=== PATIENT | male | born 1985 | race American Indian/Alaskan Native ===

== ENCOUNTER 2016-12-03 08:42 | Emergency (ER) | payer OTHER ==
[2016-12-03 08:50] VITALS: BP 144/94; PULSE 68; TEMP 97.7; BMI 32.3
--- NOTE | 2016-12-03 09:21 | PDOC ---
History of Present Illness - General Chief Complaint: Pain Stated Complaint: NECK PAIN, LT SHOULDER PAIN Time Seen by Provider: 12/03/16 09:11 History Source: Patient Exam Limitations: No Limitations - History of Present Illness Initial Comments: 12/03/16 09:18 Complaints of neck and left shoulder pain 2 days. Uncertain as to cause, states woke up and had severe pain in his progressively gotten worse. Has tried to change pillow, has used some Motrin with minimal resolved. 12/03/16 09:19 12/03/16 09:33 Occurred: reports: yesterday Severity: reports: mild, moderate Pain Location: reports: neck, upper extremity Method of Injury: Yes: unknown Modifying Factors: improves with: None Loss of Consciousness: no loss of consciousness Associated Symptoms (Fall): denies symptoms Past History - Travel Traveled outside of the country in the last 30 days: No Close contact w/someone who was outside of country & ill: No - Past Medical History Allergies/Adverse Reactions: Allergies Allergy/AdvReac Type Severity Reaction Status Date / Time No Known Allergies Allergy Verified 12/03/16 08:46 Home Medications: Ambulatory Orders Cyclobenzaprine HCl [Flexeril 10 mg] 10 mg PO BID PRN #14 tablet 12/03/16 - Psycho/Social/Smoking Cessation Hx Anxiety: No Suicidal Ideation: No Smoking History: Never smoked Have you smoked in the past 12 months: No Information on smoking cessation initiated: No Hx Alcohol Use: No Drug/Substance Use Hx: No Substance Use Type: None Trauma Specific PMHX - Complaint Specific PMHX Arthritis: No Back Injury: No Neck Injury: No Review of Systems - Review of Systems Able to Perform ROS?: Yes Is the patient limited Malawian proficient: Yes Constitutional: Yes: Symptoms Reported, See HPI, Malaise. No: Chills, Fever HEENTM: Yes: See HPI. No: Symptoms Reported, Nose Congestion, Throat Pain Respiratory: Yes: See HPI, Cough. No: Symptoms reported Musculoskeletal: Yes: Symptoms Reported, See HPI, Back Pain, Muscle Pain, Neck Pain Integumentary: Yes: See HPI. No: Symptoms Reported Neurological: Yes: Symptoms reported, See HPI, Headache All Other Systems: Reviewed and Negative *Physical Exam - Vital Signs Last Vital Signs Temp Pulse Resp BP Pulse Ox 97.7 F 68 18 144/94 99 12/03/16 08:48 12/03/16 08:48 12/03/16 08:48 12/03/16 08:48 12/03/16 08:48 - Physical Exam General Appearance: Yes: Nourished, Appropriately Dressed, Apparent Distress, Mild Distress HEENT: positive: CHEPE, Normal ENT Inspection, TMs Normal, Pharynx Normal Neck: positive: Tender, Supple, Other (palpable spasm noted to the left upper trapezius, with deep palpation reproduces tenderness to shoulder. No cervical spine tenderness, no right shoulder tenderness.) Respiratory/Chest: positive: Lungs Clear, Normal Breath Sounds, Respiratory Distress. negative: Wheezing Gastrointestinal/Abdominal: positive: Normal Bowel Sounds, Tender, Soft. negative: Guarding Extremity: positive: Normal Capillary Refill, Normal Inspection Integumentary: positive: Normal Color, Dry, Warm Neurologic: positive: wall attendant II-XII NML intact, Fully Oriented, Alert, Normal Mood/ Affect, Normal Response, Motor Strength 5/5 Progress Note - Progress Note Progress Note: Cervical strain, will treat with NSAIDs and cyclobenzaprine *DC/Admit/Observation/Transfer Diagnosis at time of Disposition: Cervical muscle strain Qualifiers: Encounter type: initial encounter Qualified Code(s): S16.1XXA - Strain of muscle, fascia and tendon at neck level, initial encounter - Discharge Dispostion Disposition: HOME Condition at time of disposition: Stable Admit: No - Patient Instructions Printed Discharge Instructions: DI for Cervical Muscle Strain Additional Instructions: Rest, no heavy lifting or exercise until pain is resolved Hot soaks to neck and low back as often as possible/hot showers or Jacuzzis No massage or therapy until spasm is gone Continue ibuprofen 2-200 mg tablets every 6 hours for the next 3 days then as needed for pain and swelling Cyclobenzaprine 1-10mg every 8 hours as needed for spasm If not significant improvement within 24 hours with medication and rest regime, followup with private physician for change in medications and /or therapy. - Post Discharge Activity Work/School Note: Back to Work
[2016-12-03] MEDS ORDERED: KETOROLAC TROMETHAMINE 60 MG/2 ML VIAL IM ONE (09:29)
[2016-12-03] MEDS ORDERED: CYCLOBENZAPRINE HCL 10 MG TABLET (FP) ONE (09:29)
[2016-12-03] MEDS ORDERED: CYCLOBENZAPRINE HCL 10 MG TABLET (FP) PO ONE (09:29)
[2016-12-03] MEDS ORDERED: KETOROLAC TROMETHAMINE 60 MG/2 ML VIAL ONE (09:29)
== END 2016-12-03 10:13 | disposition home or self-care (01) ==
LOC: JERFT 08:42
PROC: 3E0233Z Introduction of Anti-inflammatory into Muscle, Percutaneous Approach (ICD-10-PCS; principal; 2016-12-03)
DX: S16.1XXA Strain of muscle, fascia and tendon at neck level, initial encounter (principal); X58.XXXA Exposure to other specified factors, initial encounter; Y93.89 Activity, other specified; Y92.013 Bedroom of single-family (private) house as the place of occurrence of the external cause
CPT/HCPCS: 99281-25

== ENCOUNTER 2017-05-02 15:09 | Emergency (ER) | payer OTHER ==
[2017-05-02] MEDS ORDERED: DEXAMETHASONE SOD PHOSPHATE 10 MG/1 ML VIAL ONE (15:13)
[2017-05-02] MEDS ORDERED: methylPREDNISolone NA SUCC 125 MG/2 ML VIAL ONE (15:14)
[2017-05-02] MEDS ORDERED: FAMOTIDINE 20 MG/50 ML IVPB 50 ML IVPB ONE ×2 (15:14→18:37)
[2017-05-02] MEDS ORDERED: EPINEPHrine/PF 1 MG/1 ML (1:1,000) AMPULE ONE (15:20)
--- NOTE | 2017-05-02 15:42 | PDOC ---
Attending Attestation - Resident Resident Name: AbrahanaltonWes - ED Attending Attestation I have performed the following: I have examined & evaluated the patient, The case was reviewed & discussed with the resident, I agree w/resident's findings & plan - HPI HPI: 05/02/17 16:43 The patient is a 32 year old male, with a significant past medical history of anaphylaxis BIBEMS for an allergic reaction s/p epinephrine in the field. 1 hour DAIRY TESTER, pt reports eating some bread, then began complaining of a rash and shortness of breath. The patient reports he ate some bread, and shortly after began to notice his skin turn red, itchy, and with hives. After several minutes patient reports noting chest pain, which he describes as a pressure. Patient reports his symptoms are similar to allergic reactions he has had in the past, and states he took two 25mg benadryl as a result. Patient reports symptoms worsened after taking benadryl and he became extremely short of breath. At that time EMS was activated. When EMS arrived on scene, patient was given epinephrine due to systolic BP in the 50s. He reports significant improvement in his SOB after the epinephrine. Patient currently denies any associated throat or tongue swelling. He still has hives, but otherwise is asymptomatic. He denies any diaphoresis or palpitations. He denies any fever, chills, or cough. Denies N/V/D. Allergies: NKDA Past Surgical History: None reported Social History: Non smoker. No ETOH or drug use. PCP: Dr. Mark GENERAL/CONSTITUTIONAL: No fever or chills. No weakness. HEAD, EYES, EARS, NOSE AND THROAT: No change in vision. No ear pain or discharge. No sore throat. CARDIOVASCULAR:Yes: +chest pain, +shortness of breath. RESPIRATORY: No cough, wheezing, or hemoptysis. GASTROINTESTINAL: No nausea, vomiting, diarrhea or constipation. GENITOURINARY: No dysuria, frequency, or change in urination. MUSCULOSKELETAL: No joint or muscle swelling or pain. No neck or back pain. SKIN: No rash NEUROLOGIC: No headache, vertigo, loss of consciousness, or change in strength/ sensation. ENDOCRINE: No increased thirst. No abnormal weight change. HEMATOLOGIC/LYMPHATIC: No anemia, easy bleeding, or history of blood clots. ALLERGIC/IMMUNOLOGIC: Yes: +skin allergy, +erythematous skin, +hives. - Physicial Exam PE: 05/02/17 16:43 GENERAL: Awake, alert, and fully oriented, in no acute distress HEAD: No signs of trauma EYES: PERRLA, EOMI, sclera anicteric, conjunctiva clear ENT: No edema of the lips or tongue, oropharynx is clear, mallampati 2, uvula was midline. NECK: Normal ROM, supple, no lymphadenopathy, JVD, or masses LUNGS: Breath sounds equal, clear to auscultation bilaterally. No wheezes, and no crackles HEART: Regular rate and rhythm, normal S1 and S2, no murmurs, rubs or gallops ABDOMEN: Soft, nontender, normoactive bowel sounds. No guarding, no rebound. No masses EXTREMITIES: Normal range of motion, no edema. No clubbing or cyanosis. No cords, erythema, or tenderness NEUROLOGICAL: Normal speech, cranial nerves intact, negative pronator drift, 5/ 5 strength in all 4 extremities, normal sensation to light touch in all 4 extremities, normal cerebellar exam, normal gait, normal reflexes and tone SKIN: Diffuse erythema, with some superimposed hives on the proximal left upper extremity. - Medical Decision Making 05/02/17 16:43 Documentation prepared by Curtis Douglas, acting as certified medical coder for Clotilde Carrera MD. <Curtis Douglas - Last Filed: 05/02/17 16:44> - Resident Resident Name: Wes English - ED Attending Attestation I have performed the following: I have examined & evaluated the patient, The case was reviewed & discussed with the resident, I agree w/resident's findings & plan, Exceptions are as noted - HPI HPI: 05/02/17 19:01 32yo M hx anaphylaxis p/w - Medical Decision Making 05/02/17 17:03 32-year-old male history of anaphylaxis presents with anaphylaxis. Currently patient is hemodynamically stable and on exam only has persistent diffuse erythema to his skin and hives on the proximal left upper extremity. His airway is currently patent and he denies any breathing complaints. He also has no wheezing on exam. We will observe the patient for approximately 6 hours. 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 Will observe for a total of 6 hours and discharge home with a prescription for 2 EpiPens, Pepcid, Benadryl, prednisone if he does not have further symptoms. 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 <Clotilde Carrera - Last Filed: 05/03/17 09:53>
[2017-05-02 15:45] VITALS: BMI 30.1
--- NOTE | 2017-05-02 16:41 | PDOC ---
History of Present Illness - General Chief Complaint: Allergic Reaction Stated Complaint: ALLERGIC REACTION Time Seen by Provider: 05/02/17 15:24 History Source: Patient Exam Limitations: No Limitations - History of Present Illness Initial Comments: 05/02/17 16:35 Patient is a 32M with history of one prior anaphylaxis episode due to an unknown cause here today via EMS with anaphylaxis. Per EMS, patient collapsed and had low blood pressure reading with a diffuse rash and difficulty breathing. Was given epi in the field. On arrival to the ED, patient was improved, awake and alert. He reports eating bread, and still does not know what caused the reaction. Past History - Past Medical History Allergies/Adverse Reactions: Allergies Allergy/AdvReac Type Severity Reaction Status Date / Time No Known Allergies Allergy Verified 12/03/16 08:46 Home Medications: Ambulatory Orders Epinephrine [Epipen 2-Loki] 0.3 mg IJ ASDIR #1 kit 05/02/17 Famotidine [Pepcid] 20 mg PO DAILY #5 tablet 05/02/17 Prednisone [Prednisone 50 MG TABLETS] 50 mg PO DAILY #4 tablet 05/02/17 Other medical history: denies - Psycho/Social/Smoking Cessation Hx Anxiety: No Suicidal Ideation: No Smoking History: Never smoked Have you smoked in the past 12 months: No Information on smoking cessation initiated: No Hx Alcohol Use: No Drug/Substance Use Hx: No Substance Use Type: None Review of Systems - Review of Systems Comments:: 05/02/17 16:41 GENERAL/CONSTITUTIONAL: No fever or chills. No weakness. HEAD, EYES, EARS, NOSE AND THROAT: No change in vision. No ear pain or discharge. No sore throat. CARDIOVASCULAR: No chest pain or shortness of breath RESPIRATORY: No cough, Positive for: wheezing SKIN: Positive for rash NEUROLOGIC: No headache, Positive for: loss of consciousness ENDOCRINE: No increased thirst. No abnormal weight change HEMATOLOGIC/LYMPHATIC: No anemia, easy bleeding, or history of blood clots. ALLERGIC/IMMUNOLOGIC: Positive for prior anaphylaxis reaction *Physical Exam - Vital Signs Last Vital Signs Temp Pulse Resp BP Pulse Ox 72 18 111/77 100 05/02/17 15:10 05/02/17 15:10 05/02/17 15:10 05/02/17 15:10 - Physical Exam Comments: 05/02/17 16:43 GENERAL: Awake, alert, and fully oriented, in moderate acute distress HEAD: No signs of trauma, normocephalic, atraumatic, facial edema EYES: PERRLA, EOMI, sclera anicteric, conjunctiva clear ENT: Auricles normal inspection, hearing grossly normal, nares patent, oropharynx clear without exudates. Moist mucosa NECK: Normal ROM, supple, no lymphadenopathy, JVD, or masses LUNGS: No wheezing, moderate distress, clear to auscultation HEART: Regular rate and rhythm, normal S1 and S2, no murmurs, rubs or gallops, peripheral pulses normal and equal bilaterally. ABDOMEN: Soft, nontender, normoactive bowel sounds. No guarding, no rebound. No masses EXTREMITIES: Normal inspection, No edema NEUROLOGICAL: Cranial nerves II through XII grossly intact. No focal sensorimotor deficits SKIN: Diffuse maculopapular rash Medical Decision Making - Medical Decision Making 05/02/17 16:45 32M with history of prior anaphylaxis presenting with anaphylaxis via EMS. Improved after field epi given. Given solumedrol and benadryl immediately in hospital. Patient protecting their airway, breathing normally, normal cardiovascular function, responds to commands and moves all four extremities. Patient quickly resolved back to baseline. Currently vital signs stable and normal. Will continue to monitor. 05/02/17 18:25 Patient continues to be stable. Rash resolving. *DC/Admit/Observation/Transfer Diagnosis at time of Disposition: Anaphylaxis Qualifiers: Encounter type: initial encounter Qualified Code(s): T78.2XXA - Anaphylactic shock, unspecified, initial encounter - Discharge Dispostion Disposition: HOME Condition at time of disposition: Good Admit: No - Prescriptions Prescriptions: Epinephrine [Epipen 2-Loki] 0.3 mg IJ ASDIR #1 kit Famotidine [Pepcid] 20 mg PO DAILY #5 tablet Prednisone [Prednisone 50 MG TABLETS] 50 mg PO DAILY #4 tablet - Referrals Referrals: Lonnie Mark MD [Primary Care Provider] - Call tomorrow - Patient Instructions Printed Discharge Instructions: DI for Anaphylaxis Additional Instructions: Please take 50mg of Benadryl (Generic Diphenhydramine) every 8 hours for the next 5 days. This will make you sleepy, so please avoid driving or using heavy machinery. Please fill your epi-pen prescription immediately. If you experience a similar reaction, use your epi-pen and call 911. DO NOT consume the food that caused this reaction or anything that food may have possibly contaminated.
[2017-05-02] MEDS ORDERED: DEXAMETHASONE SOD PHOSPHATE 10 MG/1 ML VIAL IVPUSH ONE (18:38)
[2017-05-02] MEDS ORDERED: SODIUM CHLORIDE 1,000 ML IV STA (18:39)
[2017-05-02 19:01] VITALS: BP 107/78; PULSE 86
== END 2017-05-02 21:27 | disposition home or self-care (01) ==
LOC: JER 15:09
PROC: 3E033GC Introduction of Other Therapeutic Substance into Peripheral Vein, Percutaneous Approach (ICD-10-PCS; principal; 2017-05-02)
PROC: 3E0333Z Introduction of Anti-inflammatory into Peripheral Vein, Percutaneous Approach (ICD-10-PCS; 2017-05-02)
DX: T78.2XXA Anaphylactic shock, unspecified, initial encounter (principal); R55 Syncope and collapse
CPT/HCPCS: 99283-25

== ENCOUNTER 2019-04-12 20:23 | Emergency (ER) | payer OTHER ==
[2019-04-12] MEDS ORDERED: DEXAMETHASONE SOD PHOSPHATE 10 MG/1 ML VIAL IM ONE (20:39)
[2019-04-12 20:41] VITALS: BMI 29.4
--- NOTE | 2019-04-12 20:42 | PDOC ---
Rapid Medical Evaluation Chief Complaint: Allergic Reaction Time Seen by Provider: 04/12/19 20:38 Medical Evaluation: Allergies Allergy/AdvReac Type Severity Reaction Status Date / Time No Known Allergies Allergy Verified 12/03/16 08:46 04/12/19 20:40 I have performed a brief in-person evaluation of this patient. The patient presents with a chief complaint of: diffused hives since an hour ago of unknown etiology. Patient report using epi-pen prior to coming to ED. Denies chocking sensation, tongue or lip swelling. Denies SOB Pertinent physical exam findings: diffused urticarial rash to b/l UE/ LE . oropharynx patent I have ordered the following: Decadron IM, Benadryl IM The patient will proceed to the ED for further evaluation. Discharge Disposition - Diagnosis Allergic reaction Qualifiers: Encounter type: initial encounter Qualified Code(s): T78.40XA - Allergy, unspecified, initial encounter - Discharge Dispostion Condition at time of disposition: Stable - Referrals - Patient Instructions - Post Discharge Activity
[2019-04-12] MEDS ORDERED: DEXAMETHASONE SOD PHOSPHATE 10 MG/1 ML VIAL ONE (21:01)
--- NOTE | 2019-04-12 21:30 | PDOC ---
History of Present Illness <Sheila Perez - Last Filed: 04/13/19 00:10> - History of Present Illness Initial Comments: Mr. Rucker is a 34 y/o male with hx of allergic reactions presenting today with an allergic reaction to roti. He has a hx of allergic reactions to breads. Reports that at dinner today around 1830 he ate some roti and a short while later began to experience shortness of breath and noticed an urticarial rash throughout his upper extremities and abdomen. States he used his epi pen and subsequently came to the ER. On presentation he reports feeling mildly short of breath and a diffuse urticarial rash on his RUE and lower abdomen. The last time he had an allergic reaction was 4 months ago (to bread) and last time he used an epi pen was 2 years ago during a trip to [facility]. No chest pain, no abdominal pain, no nausea, no vomiting. <Harvinder Nice - Last Filed: 04/13/19 03:33> - General Chief Complaint: Allergic Reaction Stated Complaint: ALLERGIC REACTION Time Seen by Provider: 04/12/19 20:38 Past History <Sheila Perez - Last Filed: 04/13/19 00:10> - Past Medical History COPD: No - Suicide/Smoking/Psychosocial Hx Smoking History: Never smoked Have you smoked in the past 12 months: No Hx Alcohol Use: No Drug/Substance Use Hx: No Substance Use Type: None <Harvinder Nice - Last Filed: 04/13/19 03:33> - Past Medical History Allergies/Adverse Reactions: Allergies Allergy/AdvReac Type Severity Reaction Status Date / Time No Known Allergies Allergy Verified 04/12/19 20:41 Home Medications: Ambulatory Orders Epinephrine [Epipen 2-Loki] 0.3 mg IJ ASDIR #1 kit 05/02/17 Famotidine [Pepcid] 20 mg PO DAILY #5 tablet 05/02/17 Prednisone [Prednisone 50 MG TABLETS] 50 mg PO DAILY #4 tablet 05/02/17 EPINEPHrine (EPI-PEN 0.3MG) [Epipen 0.3MG -] 0.3 mg IM ASDIR #2 pens 04/13/19 Prednisone [Deltasone] 20 mg PO BID #6 tablet 04/13/19 Review of Systems - Review of Systems Comments:: ROS GENERAL/CONSTITUTIONAL: No fever or chills. No weakness._ HEAD, EYES, EARS, NOSE AND THROAT: No change in vision. No ear pain or discharge. No sore throat._ CARDIOVASCULAR: No chest pain. Reports shortness of breath. RESPIRATORY: Denies cough, hemoptysis_ GASTROINTESTINAL: No nausea, vomiting, diarrhea or constipation._ GENITOURINARY: No dysuria, frequency, or change in urination._ MUSCULOSKELETAL: No joint or muscle swelling or pain. No neck or back pain._ SKIN: Urticarial rash over RUE and lower abdomen. NEUROLOGIC: No headache, vertigo, loss of consciousness, or change in strength/ sensation._ ENDOCRINE: No increased thirst. No abnormal weight change_ HEMATOLOGIC/LYMPHATIC: No anemia, easy bleeding, or history of blood clots._ ALLERGIC/IMMUNOLOGIC: No hives or skin allergy._ <Harvinder Nice - Last Filed: 04/13/19 03:33> *Physical Exam - Vital Signs Last Vital Signs Temp Pulse Resp BP Pulse Ox 97.4 F L 103 H 18 105/75 98 04/12/19 20:38 04/12/19 20:38 04/12/19 20:38 04/12/19 20:38 04/12/19 20:38 <Sheila Perez - Last Filed: 04/13/19 00:10> - Vital Signs Last Vital Signs Temp Pulse Resp BP Pulse Ox 97.4 F L 103 H 18 105/75 98 04/12/19 20:38 04/12/19 20:38 04/12/19 20:38 04/12/19 20:38 04/12/19 20:38 - Physical Exam Comments: = GENERAL: Awake, alert, and oriented to person/place/time, in no acute distress_ HEAD: No signs of trauma, normocephalic, atraumatic _ EYES: PERRLA, EOMI, sclera anicteric, conjunctiva clear_ ENT: Hearing grossly normal, nares patent, oropharynx clear without exudates. No uvular deviation. Moist mucosa. Airway patent. NECK: Normal ROM, supple, no lymphadenopathy, JVD, or masses_ LUNGS: No distress, speaks in full sentences, clear to auscultation bilaterally _ HEART: Regular rate and rhythm, normal S1 and S2, no murmurs appreciated, peripheral pulses normal and equal bilaterally._ ABDOMEN: Soft, nontender, normoactive bowel sounds. No guarding, no rebound. No masses_ EXTREMITIES: Normal inspection, Normal range of motion, no edema. No clubbing or cyanosis_ NEUROLOGICAL: Cranial nerves II through XII grossly intact. Normal speech, normal gait, no focal sensorimotor deficits _ SKIN: Warm, Dry, normal turgor. Diffuse urticarial rash noted, worse on RUE and lower abdomen. <Harvinder Nice - Last Filed: 04/13/19 03:33> ED Treatment Course - Medications Given in the ED: ED Medications Discontinued Medications Generic Name Dose Route Start Last Admin Trade Name Freq PRN Reason Stop Dose Admin Dexamethasone Sodium Phosphate 10 mg 04/12/19 20:39 04/12/19 21:03 Decadron Injection - IM 04/12/19 20:40 10 mg ONCE ONE Administration Diphenhydramine HCl 50 mg 04/12/19 20:42 04/12/19 21:03 Benadryl Injection - IM 04/12/19 20:43 50 mg ONCE ONE Administration <Sheila Perez - Last Filed: 04/13/19 00:10> - Medications Given in the ED: ED Medications Discontinued Medications Generic Name Dose Route Start Last Admin Trade Name Freq PRN Reason Stop Dose Admin Dexamethasone Sodium Phosphate 10 mg 04/12/19 20:39 04/12/19 21:03 Decadron Injection - IM 04/12/19 20:40 10 mg ONCE ONE Administration Diphenhydramine HCl 50 mg 04/12/19 20:42 04/12/19 21:03 Benadryl Injection - IM 04/12/19 20:43 50 mg ONCE ONE Administration <Harvinder Nice - Last Filed: 04/13/19 03:33> Medical Decision Making - Medical Decision Making 04/12/19 21:15 34M with hx of anaphylactic and allergic rxn presenting today with allergic rxn to roti bread. Mildly short of breath and rash noted diffusely on RUE and lower abdomen. Used epi pen. Benadryl and decadron given here in the ED. Will reassess. 04/12/19 23:33 Patient reassessed. VSS. Plan to d/c home with prednisone 20 mg BID and f/u PCP and epi pen prescription. <Harvinder Nice - Last Filed: 04/13/19 03:33> *DC/Admit/Observation/Transfer <Sheila Perez - Last Filed: 04/13/19 00:10> <Harvinder Nice - Last Filed: 04/13/19 03:33> Diagnosis at time of Disposition: Allergic reaction Qualifiers: Encounter type: initial encounter Qualified Code(s): T78.40XA - Allergy, unspecified, initial encounter - Discharge Dispostion Disposition: HOME Condition at time of disposition: Stable - Prescriptions Prescriptions: EPINEPHrine (EPI-PEN 0.3MG) [Epipen 0.3MG -] 0.3 mg IM ASDIR #2 pens Prednisone [Deltasone] 20 mg PO BID #6 tablet - Referrals Referrals: Colt El MD [Primary Care Provider] - - Patient Instructions Printed Discharge Instructions: DI for General Allergic Reactions Additional Instructions: you should follow up with your trauma doctor as scheduled. you can take prednisone 40 mg daily x 3 days starting tomorrow 04/14. take benadryl 25 mg every 6 hrs as needed for itching rash. return for any problems or concerns. for recurrent lip or tongue swellin difficulty breathing or severe recurrent allergic reaction you should use your Epi Pen as directed. - Post Discharge Activity
--- NOTE | 2019-04-13 00:10 | PDOC ---
Documentation entered by Tiffanie Marie SCRIBE, acting as scribe for Sheila Perez MD. Sheila Perez MD: This documentation has been prepared by the scribe, Tiffanie Marie SCRIBE, under my direction and personally reviewed by me in its entirety. I confirm that the documentation accurately reflects all work, treatment, procedures, and medical decision making performed by me. Attending Attestation - Resident Resident Name: Brooklynn Nicehan - ED Attending Attestation I have performed the following: I have examined & evaluated the patient, The case was reviewed & discussed with the resident, I agree w/resident's findings & plan, Exceptions are as noted - HPI HPI: 04/12/19 21:54 The patient is a 34-year-old male, with a history of allergic reactions, who presents to the ED s/p an allergic reaction to roti. The patient states that at 6:30 he ate roti and subsequently began to experience shortness of breath and developed a rash on his upper extremities and abdomen. The patient used his epi pen at 6:30PM prior to arrival to the ED. He reports having a history of allergic reactions to wheat. The patient denies any fevers, chills, nausea, vomiting, diarrhea, or abdominal pain. Denies any chest pain or palpitations. Allergies: NKDA - Physicial Exam PE: 04/12/19 21:57 GENERAL: Awake, alert, and fully oriented, in no acute distress HEAD: No signs of trauma EYES: PERRLA, EOMI, sclera anicteric, conjunctiva clear ENT: Auricles normal inspection, nares patent, oropharynx clear without exudates. Moist mucosa. NECK: Normal ROM, supple, no lymphadenopathy, JVD, or masses LUNGS: No stridor or tongue or lip swelling. Breath sounds equal, clear to auscultation bilaterally. No wheezes, and no crackles HEART: Regular rate and rhythm, normal S1 and S2, no murmurs, rubs or gallops ABDOMEN: Soft, nontender, normoactive bowel sounds. No guarding, no rebound. No masses EXTREMITIES: Normal range of motion, no edema. No clubbing or cyanosis. No cords, erythema, or tenderness NEUROLOGICAL: Alert and oriented x 3. Moves all extremities. Face is symmetric. SKIN: (+)Small urticarial hives (resolving). Warm, Dry, normal turgor. - Medical Decision Making 04/13/19 00:10 34 yo with allergic reaction to wheat. used epi pen prior to arriva.l given benadryl and decadron. much improved. short observation 4 hours. will dc home with renewed prescription for epi. and steroids x 3 days.
[2019-04-13 00:42] VITALS: BP 115/70; PULSE 78; TEMP 98.1
== END 2019-04-13 00:44 | disposition home or self-care (01) ==
LOC: JERFT 20:23 → JER 20:23
PROC: 3E0233Z Introduction of Anti-inflammatory into Muscle, Percutaneous Approach (ICD-10-PCS; principal; 2019-04-12)
PROC: 3E023GC Introduction of Other Therapeutic Substance into Muscle, Percutaneous Approach (ICD-10-PCS; 2019-04-12)
DX: T78.1XXA Other adverse food reactions, not elsewhere classified, initial encounter (principal); L50.0 Allergic urticaria; X58.XXXA Exposure to other specified factors, initial encounter
CPT/HCPCS: 99282-25; J1100